=== PATIENT | male | born 1960 | race Caucasian/White ===

== ENCOUNTER 2021-02-18 22:00 | Inpatient (IN) | payer BC ==
[2021-02-19 00:42] VITALS: BMI 27.1
[2021-02-19] MEDS ORDERED: Acetaminophen 325 MG TAB PO PRN (00:45)
[2021-02-19] MEDS ORDERED: HYDROcodone/Acetaminophen 10/325 mg Tablet PO PRN (00:45)
[2021-02-19] MEDS ORDERED: Ondansetron PF 4 MG/2 ML Vial IVP PRN (00:45)
[2021-02-19] MEDS ORDERED: HYDROcodone/Acetaminophen 5/325 mg Tablet PO PRN (00:45)
[2021-02-19] MEDS ORDERED: Senokot S 8.6-50 MG TAB PO PRN (00:45)
[2021-02-19] MEDS ORDERED: Guaifenesin DM 100-10/5 ML UDCUP PO PRN (00:45)
[2021-02-19] MEDS ORDERED: LACTINEX 1 TAB PO SCH (01:15)
[2021-02-19 01:34] LABS: Hemoglobin 11.1 g/dL (14.0-18.0); Mean Corpuscular HGB CONC 35.2 g/dL (32.0-36.0); Mean Corpuscular Hemoglobin 35.5 pg (27.0-31.0); RBC Distribution Width 12.5 % (11.5-14.5); Red Blood Cell (RBC) Count 3.13 mill/uL (4.70-6.10); White Blood Cell (WBC) Count 6.6 thou/uL (4.8-10.8)
[2021-02-19 01:43] LABS: Calcium 8.2 mg/dL (7.8-10.44)
[2021-02-19 01:44] LABS: Anion Gap 12 mmol/L (10-20); BUN (Urea Nitrogen) 9 mg/dL (8.4-25.7); Calc. Creatinine Clearance 112 mL/min (70-130); Calcium 7.8 mg/dL (7.8-10.44); Carbon Dioxide 33 mmol/L (22-29); Chloride 93 mmol/L (98-107); Glucose 103 mg/dL (70-105); Magnesium 2.4 mg/dL (1.6-2.6); Sodium 136 mmol/L (136-145)
[2021-02-19 01:48] LABS: Phosphorus 1.4 mg/dL (2.3-4.7)
[2021-02-19] MEDS ORDERED: Potassium Chloride 20 MEQ TAB PO ONE (01:50)
[2021-02-19 01:51] LABS: Band 25 % (5-11); Eosinophils 1 % (0-10); Large Platelets SLIGHT; Lymphocytes 23 % (21-51); MDiff Complete? YES; Mean Platelet Volume 12.3 fL (7.4-10.4); Neutrophil 46 % (42-75); Platelet Count 58 thou/uL (130-400); Platelet Morphology Comment Appears Decreased
[2021-02-19] MEDS ORDERED: Electrolyte Replacement Protocol 1 EACH FS PRN (02:00)
[2021-02-19] MEDS ORDERED: Potassium Phosphate 22 MMOL in Sodium Chloride 0.9% 250 ML 250 ML IVPB SCH (02:00)
[2021-02-19] MEDS ORDERED: Potassium Chloride 40 MEQ in Premix Bag 1 BAG IVPB SCH (02:00)
[2021-02-19] MEDS: Sodium Chloride 0.9% 1,000 ML IV SCH ×2 (02:47→15:09)
[2021-02-19] MEDS ORDERED: Potassium Chloride 40 MEQ in Sodium Chloride 0.9% 250 ML 250 ML IVPB SCH (04:00)
[2021-02-19 06:20] LABS: Hemoglobin 10.8 g/dL (14.0-18.0); Mean Corpuscular HGB CONC 33.8 g/dL (32.0-36.0); Mean Corpuscular Hemoglobin 33.7 pg (27.0-31.0); Mean Corpuscular Volume 99.6 fL (78.0-98.0); Mean Platelet Volume 13.3 fL (7.4-10.4); Platelet Count 45 thou/uL (130-400); RBC Distribution Width 12.6 % (11.5-14.5); Red Blood Cell (RBC) Count 3.21 mill/uL (4.70-6.10); White Blood Cell (WBC) Count 5.9 thou/uL (4.8-10.8)
[2021-02-19 06:21] LABS: Band 21 % (5-11); Eosinophils 2 % (0-10); Large Platelets SLIGHT; Lymphocytes 16 % (21-51); MDiff Complete? YES; Monocytes 1 % (0-10); Neutrophil 56 % (42-75); Platelet Morphology Comment Appears Decreased
[2021-02-19 06:31] LABS: Phosphorus 2.1 mg/dL (2.3-4.7)
[2021-02-19 06:33] LABS: Hemoglobin A1c 4.9 % (4.0-6.0)
[2021-02-19 06:35] LABS: ALT (SGPT) 105 U/L (8-55); AST (SGOT) 101 U/L (5-34); Albumin 2.9 g/dL (3.5-5.0); Alkaline Phosphatase 40 U/L (40-110); Anion Gap 17 mmol/L (10-20); BUN (Urea Nitrogen) 8 mg/dL (8.4-25.7); Bilirubin, Total 0.6 mg/dL (0.2-1.2); Calc. Creatinine Clearance 120 mL/min (70-130); Calcium 4.5 mg/dL (7.8-10.44); Carbon Dioxide 29 mmol/L (22-29); Chloride 96 mmol/L (98-107); Globulin 2.3 g/dL (2.4-3.5); Glucose 104 mg/dL (70-105); Potassium 4.8 mmol/L (3.5-5.1); Protein, Total 5.2 g/dL (6.0-8.3); Sodium 137 mmol/L (136-145)
[2021-02-19 08:27] LABS: Glucose 102 mg/dL (70-105)
[2021-02-19 08:28] LABS: Carbon Dioxide 31 mmol/L (22-29)
[2021-02-19 08:30] LABS: Calc. Creatinine Clearance 119 mL/min (70-130)
[2021-02-19 08:31] LABS: BUN (Urea Nitrogen) 7 mg/dL (8.4-25.7)
[2021-02-19 08:38] LABS: Calcium 7.4 mg/dL (7.8-10.44); Chloride 97 mmol/L (98-107); Potassium 2.3 mmol/L (3.5-5.1); Sodium 138 mmol/L (136-145)
[2021-02-19 08:41] LABS: Anion Gap 12 mmol/L (10-20)
[2021-02-19] MEDS ORDERED: Diphenoxylate HCl/Atropine Tablet PO PRN (08:56)
[2021-02-19] MEDS ORDERED: Potassium Phosphate 30 MMOL in Sodium Chloride 0.9% 500 ML IVPB SCH (09:00)
[2021-02-19] MEDS ORDERED: Lidocaine 2% Viscous Solution 20 ML, Aluminum & Magnesium Hydroxide 30 ML, Donnatal Eli... SSW SCH (09:00)
[2021-02-19] MEDS: LACTINEX 1 TAB PO SCH ×3 (09:19→20:44)
[2021-02-19 17:12] LABS: Anion Gap 10 mmol/L (10-20); BUN (Urea Nitrogen) 7 mg/dL (8.4-25.7); Calc. Creatinine Clearance 119 mL/min (70-130); Calcium 7.5 mg/dL (7.8-10.44); Carbon Dioxide 35 mmol/L (22-29); Chloride 98 mmol/L (98-107); Glucose 85 mg/dL (70-105); Sodium 140 mmol/L (136-145)
[2021-02-19 17:26] LABS: Potassium 2.7 mmol/L (3.5-5.1)
[2021-02-19] MEDS ORDERED: Potassium Chloride 20 MEQ TAB PO SCH (19:45)
[2021-02-19] MEDS: Potassium Chloride 20 MEQ in Premix Bag 1 BAG IVPB SCH ×2 (20:43→22:54)
[2021-02-20] MEDS: Sodium Chloride 0.9% 1,000 ML IV SCH ×4 (03:48→21:53)
[2021-02-20 05:31] LABS: Anion Gap 10 mmol/L (10-20); BUN (Urea Nitrogen) 6 mg/dL (8.4-25.7); Calc. Creatinine Clearance 119 mL/min (70-130); Calcium 7.4 mg/dL (7.8-10.44); Carbon Dioxide 32 mmol/L (22-29); Chloride 100 mmol/L (98-107); Glucose 104 mg/dL (70-105); Magnesium 2.2 mg/dL (1.6-2.6); Sodium 139 mmol/L (136-145)
[2021-02-20 05:36] LABS: Potassium 2.6 mmol/L (3.5-5.1)
[2021-02-20] MEDS: Potassium Chloride 40 MEQ in Sodium Chloride 0.9% 250 ML 250 ML IVPB SCH ×2 (06:48→12:04)
[2021-02-20] MEDS ORDERED: Potassium Chloride 20 MEQ TAB PO SCH (07:45)
[2021-02-20] MEDS: LACTINEX 1 TAB PO SCH ×3 (08:25→21:53)
[2021-02-20] MEDS: Potassium Chloride 20 MEQ in Premix Bag 1 BAG IVPB SCH ×2 (09:40→11:45)
[2021-02-20] MEDS: Saccharomyces boulardii 250 MG CAP PO SCH (09:42)
[2021-02-20] MEDS: Vancomycin HCl 25 MG/ML Oral PO SCH ×2 (11:45→17:04)
[2021-02-20] MEDS ORDERED: Lidocaine 2% Viscous Solution 20 ML, Aluminum & Magnesium Hydroxide 30 ML, Donnatal Eli... SSW SCH (12:45)
[2021-02-20 13:49] LABS: INR-International Normal Ratio 1.1; Prothrombin Time 14.5 sec (12.0-14.7)
[2021-02-20 13:50] LABS: PTT 32.7 sec (22.9-36.1)
[2021-02-20 13:53] LABS: Lactic Acid 0.8 mmol/L (0.5-2.2)
[2021-02-20 13:58] LABS: ALT (SGPT) 112 U/L (8-55); AST (SGOT) 90 U/L (5-34); Alkaline Phosphatase 48 U/L (40-110); Bilirubin, Direct 0.3 mg/dL (0.1-0.3); Bilirubin, Total 0.5 mg/dL (0.2-1.2); Protein, Total 5.4 g/dL (6.0-8.3)
[2021-02-20 14:05] LABS: Band 39 % (5-11); Eosinophils 4 % (0-10); Hemoglobin 10.8 g/dL (14.0-18.0); Large Platelets SLIGHT; Lymphocytes 16 % (21-51); MDiff Complete? YES; Macrocytosis SLIGHT = 6-15 cells (100X) (0-5/hpf); Mean Corpuscular HGB CONC 35.5 g/dL (32.0-36.0); Mean Corpuscular Hemoglobin 36.4 pg (27.0-31.0); Monocytes 3 % (0-10); Neutrophil 33 % (42-75); Phosphorus 1.1 mg/dL (2.3-4.7); Platelet Count 72 thou/uL (130-400); Platelet Morphology Comment Appears Decreased; Polychromasia SLIGHT = 2-3 cells (100X) (0-2/hpf); RBC Distribution Width 12.9 % (11.5-14.5); Reactive Lymphocytes 2 % (0-10); Red Blood Cell (RBC) Count 2.96 mill/uL (4.70-6.10); White Blood Cell (WBC) Count 5.1 thou/uL (4.8-10.8)
[2021-02-20] MEDS ORDERED: Potassium Phosphate 30 MMOL in Sodium Chloride 0.9% 500 ML IVPB SCH (16:30)
[2021-02-20] MEDS ORDERED: Apixaban 5 MG TAB PO SCH (21:00)
[2021-02-21] MEDS: Vancomycin HCl 25 MG/ML Oral PO SCH ×5 (00:01→23:13)
[2021-02-21] MEDS ORDERED: Non-Formulary Item 1 EACH (Levothyroxine Sodium [Levothyroxine] 150 MCG Capsule) PO SCH (05:00)
[2021-02-21 05:37] LABS: Hemoglobin 9.7 g/dL (14.0-18.0); Mean Corpuscular HGB CONC 34.9 g/dL (32.0-36.0); Mean Corpuscular Hemoglobin 36.4 pg (27.0-31.0); Platelet Count 70 thou/uL (130-400); Red Blood Cell (RBC) Count 2.67 mill/uL (4.70-6.10); White Blood Cell (WBC) Count 5.2 thou/uL (4.8-10.8)
[2021-02-21 05:43] LABS: Anion Gap 10 mmol/L (10-20); BUN (Urea Nitrogen) 4 mg/dL (8.4-25.7); Calc. Creatinine Clearance 121 mL/min (70-130); Calcium 7.2 mg/dL (7.8-10.44); Carbon Dioxide 26 mmol/L (22-29); Chloride 107 mmol/L (98-107); Glucose 135 mg/dL (70-105); Sodium 140 mmol/L (136-145)
[2021-02-21] MEDS: Levothyroxine 150 MCG TAB PO SCH (05:50)
[2021-02-21 05:54] LABS: Potassium 2.6 mmol/L (3.5-5.1)
[2021-02-21] MEDS: Sodium Chloride 0.9% 1,000 ML IV SCH ×3 (05:58→21:24)
[2021-02-21] MEDS ORDERED: Magnesium 2 GM/50 ML 2 GM in Premix Bag 1 BAG IVPB SCH (06:30)
[2021-02-21] MEDS: Potassium Chloride 20 MEQ TAB PO SCH ×2 (06:34→10:59)
[2021-02-21 06:35] LABS: Band 24 % (5-11); Eosinophils 3 % (0-10); Large Platelets SLIGHT; Lymphocytes 33 % (21-51); MDiff Complete? YES; Neutrophil 40 % (42-75); Platelet Morphology Comment Appears Decreased
[2021-02-21] MEDS ORDERED: Loperamide HCl 2 MG CAP PO PRN (07:52)
[2021-02-21] MEDS ORDERED: Potassium Chloride 20 MEQ TAB PO SCH (08:00)
[2021-02-21] MEDS ORDERED: Loperamide HCl 2 MG CAP PO SCH (08:00)
[2021-02-21 08:19] LABS: Critical Call Chemistry 2NO.AH1; Phosphorus 1.7 mg/dL (2.3-4.7)
[2021-02-21] MEDS: Saccharomyces boulardii 250 MG CAP PO SCH (09:00)
[2021-02-21] MEDS: LACTINEX 1 TAB PO SCH ×3 (09:00→21:23)
[2021-02-21] MEDS: Potassium Chloride 20 MEQ in Premix Bag 1 BAG IVPB SCH ×2 (09:00→10:59)
[2021-02-21] MEDS ORDERED: Potassium Phosphate 30 MMOL in Sodium Chloride 0.9% 500 ML IVPB SCH (10:00)
[2021-02-21] MEDS ORDERED: Lidocaine 2% Viscous Solution 20 ML, Aluminum & Magnesium Hydroxide 30 ML, Donnatal Eli... SSW SCH (14:00)
[2021-02-21 20:39] LABS: Phosphorus 1.5 mg/dL (2.3-4.7)
[2021-02-21 20:54] LABS: Anion Gap 8 mmol/L (10-20); BUN (Urea Nitrogen) Less than 4 mg/dL (8.4-25.7); Calc. Creatinine Clearance 123 mL/min (70-130); Calcium 7.8 mg/dL (7.8-10.44); Carbon Dioxide 27 mmol/L (22-29); Chloride 110 mmol/L (98-107); Glucose 93 mg/dL (70-105); Sodium 141 mmol/L (136-145)
[2021-02-22] MEDS ORDERED: Potassium Phosphate 22 MMOL in Sodium Chloride 0.9% 250 ML 250 ML IVPB SCH (00:30)
[2021-02-22] MEDS: Levothyroxine 150 MCG TAB PO SCH (05:36)
[2021-02-22] MEDS: Vancomycin HCl 25 MG/ML Oral PO SCH (05:36)
[2021-02-22 06:01] LABS: Anion Gap 8 mmol/L (10-20); BUN (Urea Nitrogen) Less than 4 mg/dL (8.4-25.7); Calc. Creatinine Clearance 126 mL/min (70-130); Calcium 7.4 mg/dL (7.8-10.44); Carbon Dioxide 26 mmol/L (22-29); Chloride 109 mmol/L (98-107); Glucose 95 mg/dL (70-105); Magnesium 1.9 mg/dL (1.6-2.6); Potassium 3.5 mmol/L (3.5-5.1); Sodium 139 mmol/L (136-145)
[2021-02-22] MEDS ORDERED: Magnesium 2 GM/50 ML 2 GM in Premix Bag 1 BAG IVPB SCH (06:15)
[2021-02-22] MEDS ORDERED: Potassium Chloride 20 MEQ TAB PO SCH (06:15)
[2021-02-22 06:31] LABS: Hemoglobin 9.4 g/dL (14.0-18.0); Mean Corpuscular HGB CONC 34.4 g/dL (32.0-36.0); Mean Platelet Volume 12.3 fL (7.4-10.4); Platelet Count 83 thou/uL (130-400); RBC Distribution Width 13.5 % (11.5-14.5); Red Blood Cell (RBC) Count 2.62 mill/uL (4.70-6.10); White Blood Cell (WBC) Count 4.8 thou/uL (4.8-10.8)
[2021-02-22 08:24] VITALS: BP 106/61; TEMP 98.2
[2021-02-22 08:31] LABS: Band 17 % (5-11); Eosinophils 4 % (0-10); Lymphocytes 28 % (21-51); MDiff Complete? YES; Macrocytosis SLIGHT = 6-15 cells (100X) (0-5/hpf); Monocytes 3 % (0-10); Neutrophil 40 % (42-75); Nucleated RBC 1 % (0); Platelet Morphology Comment Appears Decreased; Polychromasia SLIGHT = 2-3 cells (100X) (0-2/hpf)
[2021-02-22] MEDS ORDERED: Potassium Phosphate 30 MMOL in Sodium Chloride 0.9% 500 ML IVPB SCH (09:00)
[2021-02-22] MEDS: LACTINEX 1 TAB PO SCH (09:54)
[2021-02-22] MEDS: Saccharomyces boulardii 250 MG CAP PO SCH (09:54)
[2021-02-22] MEDS: Sodium Chloride 0.9% 1,000 ML IV SCH (11:45)
== END 2021-02-22 12:35 | disposition home or self-care (01) | DRG 372 ==
LOC: 2NO 22:00 → OBSVTOIN 02-20 13:52
PROVIDERS: ADMIT Internal Medicine; ATTEND Internal Medicine
DX: A04.72 Enterocolitis due to Clostridium difficile, not specified as recurrent (principal); C78.7 Secondary malignant neoplasm of liver and intrahepatic bile duct; E87.6 Hypokalemia; R74.8 Abnormal levels of other serum enzymes; E87.8 Other disorders of electrolyte and fluid balance, not elsewhere classified; E83.39 Other disorders of phosphorus metabolism; R73.9 Hyperglycemia, unspecified; C69.32 Malignant neoplasm of left choroid; D69.59 Other secondary thrombocytopenia; K76.89 Other specified diseases of liver; T45.1X5A Adverse effect of antineoplastic and immunosuppressive drugs, initial encounter; K13.29 Other disturbances of oral epithelium, including tongue; Z86.718 Personal history of other venous thrombosis and embolism; Z86.711 Personal history of pulmonary embolism; Z88.5 Allergy status to narcotic agent; Z88.0 Allergy status to penicillin; Z79.01 Long term (current) use of anticoagulants; Z79.899 Other long term (current) drug therapy; Z79.890 Hormone replacement therapy; Z85.840 Personal history of malignant neoplasm of eye; Z98.890 Other specified postprocedural states; Z87.891 Personal history of nicotine dependence; Z82.49 Family history of ischemic heart disease and other diseases of the circulatory system
CPT/HCPCS: 36415; 71045; 74018; 80048; 80053; 80076; 83036; 83605; 83615; 83735; 84100; 85025; 85060; 85384; 85610; 85730; 86850; 86900; 86901; 87324; 87449; 87493; 96365; 96366; 96376; G0378; J3475; J3480; J7030; J7050